=== PATIENT | female | born 1955 | race Asian ===

== ENCOUNTER 2018-01-05 21:07 | Emergency (ER) | payer MEDICARE, OTHER ==
--- NOTE | 2018-01-05 22:40 | ED Physician Chart ---
ED Chief Complaint/HPI - Patient Information Date Seen:: 01/05/18 Time Seen:: 22:00 Chief Complaint:: MALAISE History of Present Illness:: 62 YR OLD FEMALE ON SEDATIVES WITH WEAKNESS NO FEVER COUGH NO NVD PT DENIES CHEST OR ABD PAIN PT STATES SHE THINKS HER POTASSIUM IS LOW AND THAT IS WHY SHE IS WEAK SHE HAS A HX OF THAT. Allergies:: Allergies Allergy/AdvReac Type Severity Reaction Status Date / Time No Known Allergies Allergy Verified 01/05/18 21:40 Vitals:: Vital Signs - 8 hr 01/05/18 21:25 Temp 98.4 F HR 107 RR 18 BP 161/104 O2 Sat % 97 Historian:: Patient ED Review of Systems - Review of Systems General/Constitutional: No fever, No chills, No weight loss, No weakness, No diaphoresis, No edema, No loss of appetite Skin: No skin lesions, No rash, No bruising Head: No headache, No light-headedness Eyes: No loss of vision, No pain, No diplopia ENT: No earache, No nasal drainage, No sore throat, No tinnitus Neck: No neck pain, No swelling, No thyromegaly, No stiffness, No mass noted Cardio Vascular: No chest pain, No palpitations, No PND, No orthopnea, No edema Pulmonary: No SOB, No cough, No sputum, No wheezing GI: No nausea, No vomiting, No diarrhea, No pain, No melena, No hematochezia, No constipation, No hematemesis G/U: No dysuria, No frequency, No hematuria Musculoskeletal: No bone or joint pain, No back pain, No muscle pain Endocrine: No polyuria, No polydipsia Psychiatric: No prior psych history, No depression, No anxiety, No suicidal ideation Hematopoietic: No bruising, No lymphadenopathy Allergic/Immuno: No urticaria, No angioedema Neurological: No syncope, No focal symptoms, No weakness, No paresthesia, No headache, No seizure, No dizziness, No confusion, No vertigo Other: NIGEL ED Past Medical History - Past Medical History Past Medical History: Other (HASHIMOTOS THYROIDITIS PTSD) Family Medical History - Family Member Mother History Unknown: Yes ED Physical Exam - Physical Examination General/Constitutional: Awake, Well-developed, well-nourished, Alert, No distress, GCS 15, Non-toxic appearing, Ambulatory Head: Atraumatic Eyes: Lids, conjuctiva normal, PERRL, EOMI Skin: Nl inspection, No rash, No skin lesions, No ecchymosis, Well hydrated, No lymphadenopathy ENMT: External ears, nose nl, Nasal exam nl, Lips, teeth, gums nl Neck: Nontender, Full ROM w/o pain, No JVD, No nuchal rigidity, No bruit, No mass, No stridor Respiratory: Nl effort/Exclusion, Clear to Auscultation, No Wheeze/Rhonchi/Rales Cardio Vascular: RRR, No murmur, gallop, rubs, NL S1 S2 GI: No tenderness/rebounding/guarding, No organomegaly, No hernia, Normal BS's, Nondistended, No mass/bruits, No McBurney tenderness : No CVA tenderness Extremities: No tenderness or effusion, Full ROM, normal strength in all extremities, No edema, Normal digits & nails Neuro/Psych: Alert/oriented, DTR's symmetric, Normal sensory exam, Normal motor strength, Judgement/insight normal, Mood normal, Normal gait, No focal deficits Misc: Normal back, No paraspinal tenderness ED Assessment - Assessment General Assessment: GENERALIZED FATIGUE NON FOCAL NEURO GOOD MOOD DOWN TAKES TOO MUCH SEDATIVES TRAZADONE XANAX SEROQUEL ED Septic Shock - . Is Septic Shock (SBP<90, OR Lactate>4 mmol\L) present?: No - <6hrs of presentation: Vital Signs: Vital Signs - 8 hr 01/05/18 21:25 Temp 98.4 F HR 107 RR 18 BP 161/104 O2 Sat % 97 ED Reassessment (Disposition) - Reassessment Reassessment Condition:: Unchanged - Diagnosis Diagnosis:: MALAISE OVER MEDICATED ANXIETY - Patient Disposition Discharge/Transfer:: Home Condition at Disposition:: Stable
[2018-01-05 22:48] LABS: % BASOPHILS 0.1 % (0.0-2.0); % EOSINOPHILS 0.5 % (0.0-5.0); % LYMPHOCYTES 21.5 % (20.0-50.0); % MONOCYTES 4.6 % (2.0-10.0); % NEUTROPHILS 73.3 % (40.0-80.0); HEMATOCRIT 42.7 % (41.0-60); HEMOGLOBIN 14.4 gm/dL (12-16); LYMPHOCYTE ABSOLUTE 1.8 Th/cmm (1.5-3.0); MEAN CELL VOLUME 89.7 fl (81-100); MEAN CORPUSCULAR HEMOGLOBIN 30.3 pg (27.0-31.0); MEAN CORPUSCULAR HGB CONC 33.7 pg (28.0-36.0); MONOCYTE ABSOLUTE 0.4 Th/cmm (0.3-1.0); NEUTROPHILE ABSOLUTE 6.4 Th/cmm (1.8-8.0); PLATELET COUNT 207 Th/cmm (150-400); RED BLOOD COUNT 4.76 Mil/cmm (3.80-5.10); WHITE BLOOD COUNT 8.6 Th/cmm (4.8-10.8)
[2018-01-05 23:06] LABS: ALB/GLOB RATIO 1.7 (1.0-1.8); ALBUMIN 4.6 gm/dL (3.7-5.3); ALKALINE PHOSPHATASE 81 U/L (34-104); BILIRUBIN,TOTAL 0.2 mg/dL (0.3-1.0); BUN - UREA NITROGEN 12 mg/dL (7-25); CALCIUM SERUM 9.5 mg/dL (8.6-10.3); CARBON DIOXIDE 26.6 mEq/L (21.0-31.0); CHLORIDE 98 mEq/L (98-107); CREATININE - SERUM 0.7 mg/dL (0.6-1.2); GFR AFRICAN-AMERICAN > 60.0 ml/min (>90); GFR NON AFRICAN-AMERICAN > 60.0 ml/min; GLUCOSE 139 mg/dL (70-105); POTASSIUM SERUM 3.6 mEq/L (3.5-5.1); SGOT 14 U/L (13-39); SGPT/ALT 18 U/L (7-52); SODIUM SERUM 132 mEq/L (136-145); TOTAL PROTEIN,SERUM 7.3 gm/dL (6.0-8.3)
[2018-01-05] MEDS ORDERED: Potassium Chloride 20 mEq ER Tab PO ONE ×2 (23:35→23:45)
[2018-01-06 00:45] LABS: URINE MICROSCOPIC INDICATED? YES; URINE SOURCE CLEAN C
[2018-01-06 00:47] LABS: URINE BILIRUBIN NEGATIVE (NEGATIVE); URINE BLOOD NEGATIVE (NEGATIVE); URINE GLUCOSE (UA) NEGATIVE (NEGATIVE); URINE KETONE NEGATIVE (NEGATIVE); URINE LEUKOCYTE ESTERASE TRACE (NEGATIVE); URINE NITRATE NEGATIVE (NEGATIVE); URINE PH 7.5 (4.6 - 8.0); URINE PROTEIN NEGATIVE (NEGATIVE); URINE UROBILINOGEN 0.2 E.U./dL (0.2 - 1.0)
[2018-01-06 01:32] LABS: URINE CLARITY CLEAR (CLEAR); URINE COLOR YELLOW
[2018-01-06 01:33] LABS: URINE BACTERIA FEW /hpf (NONE SEEN); URINE EPITHELIAL CELLS FEW /lpf (FEW); URINE RBC 0-2 /hpf (0-5); URINE WBC 0-2 /hpf (0-5)
== END 2018-01-06 01:30 | disposition home or self-care (01) ==
LOC: ER 21:07
DX: R53.83 Other fatigue (principal); F41.9 Anxiety disorder, unspecified; Z88.8 Allergy status to other drugs, medicaments and biological substances
CPT/HCPCS: 36415-UA; 80053-TC; 81001-TC; 84443-TC; 85025-TC; 93005

== ENCOUNTER 2018-01-16 14:24 | Inpatient (IN) | payer MEDICARE ==
[2018-01-16 15:15] LABS: % BASOPHILS 0.4 % (0.0-2.0); % EOSINOPHILS 0.8 % (0.0-5.0); % LYMPHOCYTES 35.2 % (20.0-50.0); % MONOCYTES 5.6 % (2.0-10.0); EOSINOPHILE ABSOLUTE 0.1 Th/cmm (0.1-0.4); HEMATOCRIT 43.6 % (41.0-60); HEMOGLOBIN 14.4 gm/dL (12-16); LYMPHOCYTE ABSOLUTE 2.7 Th/cmm (1.5-3.0); MEAN CELL VOLUME 89.6 fl (81-100); MEAN CORPUSCULAR HEMOGLOBIN 29.7 pg (27.0-31.0); MEAN CORPUSCULAR HGB CONC 33.1 pg (28.0-36.0); MEAN PLATELET VOLUME 6.5 fl; MONOCYTE ABSOLUTE 0.4 Th/cmm (0.3-1.0); NEUTROPHILE ABSOLUTE 4.4 Th/cmm (1.8-8.0); PLATELET COUNT 247 Th/cmm (150-400); RED BLOOD COUNT 4.87 Mil/cmm (3.80-5.10); RED CELL DISTRIBUTION WIDTH 12.1 % (11.5-20.0); WHITE BLOOD COUNT 7.6 Th/cmm (4.8-10.8)
[2018-01-16 15:31] LABS: ALB/GLOB RATIO 1.9 (1.0-1.8); ALKALINE PHOSPHATASE 81 U/L (34-104); ANION GAP 10.5 (7.0-16.0); BILIRUBIN,TOTAL 0.4 mg/dL (0.3-1.0); BUN - UREA NITROGEN 10 mg/dL (7-25); CALCIUM SERUM 9.5 mg/dL (8.6-10.3); CARBON DIOXIDE 27.2 mEq/L (21.0-31.0); CHLORIDE 96 mEq/L (98-107); CHOLESTEROL 326 mg/dL (<200); CREATININE - SERUM 0.8 mg/dL (0.6-1.2); CREATININE KINASE 69 U/L (30-223); GFR AFRICAN-AMERICAN > 60.0 ml/min (>90); GFR NON AFRICAN-AMERICAN > 60.0 ml/min; GLUCOSE 130 mg/dL (70-105); HDL -HIGH DENSITY LIPOPROTEIN 59 mg/dL (23-92); POTASSIUM SERUM 3.7 mEq/L (3.5-5.1); SGOT 15 U/L (13-39); SGPT/ALT 27 U/L (7-52); SODIUM SERUM 130 mEq/L (136-145); TOTAL PROTEIN,SERUM 7.7 gm/dL (6.0-8.3); TRIGLYCERIDES 193 mg/dL (<150)
[2018-01-16 15:49] LABS: INR 0.88 (0.5-1.4)
[2018-01-16 15:59] LABS: DDIMER QUANT < 100 ng/mL (100-400)
--- NOTE | 2018-01-16 16:43 | ED Physician Chart ---
ED Chief Complaint/HPI - Patient Information Date Seen:: 01/16/18 Time Seen:: 14:45 Chief Complaint:: Leg Pain History of Present Illness:: onset x 3 days of intermittent MS type, dull leg pain, and mottling of LEs; pt denies trauma, H/As, LOC, S/T, neck pain, cough, C/P, SOB, Abd. Pain, A/N/V/D/C , fever, chills, or urinary s/s Allergies:: Allergies Allergy/AdvReac Type Severity Reaction Status Date / Time cephalexin Allergy Verified 01/05/18 23:53 levofloxacin [From Levaquin] Allergy Verified 01/05/18 23:53 Vitals:: Vital Signs - 8 hr 01/16/18 14:49 Temp 99.7 F HR 111 RR 16 BP 152/108 O2 Sat % 99 Historian:: Patient Review:: Nurse's Note Reviewed ED Review of Systems - Review of Systems General/Constitutional: No fever, No chills, No weight loss, No weakness, No diaphoresis, No edema, No loss of appetite Skin: No skin lesions, No rash, No bruising Head: No headache, No light-headedness Eyes: No loss of vision, No pain, No diplopia ENT: No earache, No nasal drainage, No sore throat, No tinnitus Neck: No neck pain, No swelling, No thyromegaly, No stiffness, No mass noted Cardio Vascular: No chest pain, No palpitations, No PND, No orthopnea, No edema Pulmonary: No SOB, No cough, No sputum, No wheezing GI: No nausea, No vomiting, No diarrhea, No pain, No melena, No hematochezia, No constipation, No hematemesis G/U: No dysuria, No frequency, No hematuria, No nacturia Supervisor Computer Operations: No vaginal discharge, No abnormal vaginal bleed, No contraction Musculoskeletal: No bone or joint pain, No back pain, No muscle pain Endocrine: No polyuria, No polydipsia Psychiatric: No prior psych history, No depression, Anxiety, No suicidal ideation, No homicidal ideation, No auditory hallucination, No visual hallucination Hematopoietic: No bruising, No lymphadenopathy Allergic/Immuno: No urticaria, No angioedema Neurological: No syncope, No focal symptoms, No weakness, No paresthesia, No headache, No seizure, No dizziness, No confusion, No vertigo ED Past Medical History - Past Medical History Obtainable: Yes Past Medical History: HTN, Thyroid disorder Family History: HTN Social History: Non Smoker, No Alcohol, No Drug Use, Single, Other Surgical History: other (Thyroidectomy) Psychiatricy History: None Medication: Reviewed Family Medical History - Family Member Mother History Unknown: Yes ED Physical Exam - Physical Examination General/Constitutional: Awake, Well-developed, well-nourished, Alert, No distress, GCS 15, Non-toxic appearing, Ambulatory Head: Atraumatic Eyes: Lids, conjuctiva normal, PERRL, EOMI Skin: Nl inspection, No rash, No skin lesions, No ecchymosis, Well hydrated, No lymphadenopathy ENMT: External ears, nose nl, TM canals nl, Nasal exam nl, Lips, teeth, gums nl , Oropharynx nl, Tonsils nl Neck: Nontender, Full ROM w/o pain, No JVD, No nuchal rigidity, No bruit, No mass, No stridor Respiratory: Nl effort/Exclusion, Clear to Auscultation, No Wheeze/Rhonchi/Rales Cardio Vascular: RRR, No murmur, gallop, rubs, NL S1 S2, Carotid/Femoral/Distal pulses equal bilaterally GI: No tenderness/rebounding/guarding, No organomegaly, No hernia, Normal BS's, Nondistended, No mass/bruits, No McBurney tenderness : No CVA tenderness Extremities: No tenderness or effusion, Full ROM, normal strength in all extremities, No edema, Normal digits & nails Neuro/Psych: Alert/oriented, DTR's symmetric, Normal sensory exam, Normal motor strength, Judgement/insight normal, Mood normal, Normal gait, No focal deficits Misc: Normal back, No paraspinal tenderness ED Labs/Radiology/EKG Results - Lab Results Results: Laboratory Tests 01/16/18 01/16/18 01/16/18 15:01 15:01 15:01 WBC 7.6 RBC 4.87 Hgb 14.4 Hct 43.6 MCV 89.6 MCH 29.7 MCHC Differential 33.1 RDW 12.1 Plt Count 247 MPV 6.5 Neutrophils % 58.0 Lymphocytes % 35.2 Monocytes % 5.6 Eosinophils % 0.8 Basophils % 0.4 PT 9.0 L INR 0.88 D-Dimer < 100 L Sodium 130 L Potassium 3.7 Chloride 96 L Carbon Dioxide 27.2 Anion Gap 10.5 BUN 10 Creatinine 0.8 Est GFR ( Amer) > 60.0 Est GFR (Non-Af Amer) > 60.0 BUN/Creatinine Ratio 12.5 Glucose 130 H Calcium 9.5 Total Bilirubin 0.4 AST 15 ALT 27 Alkaline Phosphatase 81 Creatine Kinase 69 Troponin I B-Natriuretic Peptide Total Protein 7.7 Albumin 5.0 Globulin 2.7 Albumin/Globulin Ratio 1.9 H Triglycerides 193 H Cholesterol 326 H LDL Cholesterol Direct 219 H HDL Cholesterol 59 Serum , Qual 01/16/18 01/16/18 01/16/18 15:01 15:01 15:01 WBC RBC Hgb Hct MCV MCH MCHC Differential RDW Plt Count MPV Neutrophils % Lymphocytes % Monocytes % Eosinophils % Basophils % PT INR D-Dimer Sodium Potassium Chloride Carbon Dioxide Anion Gap BUN Creatinine Est GFR ( Amer) Est GFR (Non-Af Amer) BUN/Creatinine Ratio Glucose Calcium Total Bilirubin AST ALT Alkaline Phosphatase Creatine Kinase Troponin I < 0.01 L B-Natriuretic Peptide 7.0 Total Protein Albumin Globulin Albumin/Globulin Ratio Triglycerides Cholesterol LDL Cholesterol Direct HDL Cholesterol Serum , Qual NEGATIVE Comments:: Na+: 130 - Radiology Results Comments:: NAD - EKG Interpretations EKG Time:: 17:28 Rate & Rhythm: 72; NSR Comments:: T-Wave Inversion in V1 and V2; non-specific st-t changes ED Septic Shock - . Is Septic Shock (SBP<90, OR Lactate>4 mmol\L) present?: No - <6hrs of presentation: Vital Signs: Vital Signs - 8 hr 01/16/18 14:49 Temp 99.7 F HR 111 RR 16 BP 152/108 O2 Sat % 99 ED Reassessment (Disposition) - Reassessment Reassessment Condition:: Improved - Diagnosis Diagnosis:: Leg Pain; Uncontrolled Hypertension; Hyponatremia; Myocardial Ischemia; Malaise ; Dehydration - Aftercare/Follow up Instructions Aftercare/Follow-Up Instructions:: Counseled pt regarding lab results/diagnosis & need follow up, Counseled pt & family regarding lab results/diagnosis & need follow up - Patient Disposition Discharge/Transfer:: Acute Care w/in this hosp Accepting Physician:: Dr. Duron Time Called:: 1615 Time Responded:: 16:15 Admitted to:: Telemetry Spoke to:: Dr. Duron Admitting Medical Physician:: Dr. Duron Condition at Disposition:: Stable, Improved
[2018-01-16] MEDS ORDERED: NITROGLYCERIN OINT 2% 1 INCH PACKET TP STA (17:30)
[2018-01-16] MEDS ORDERED: NITROGLYCERIN OINT 2% 1 INCH PACKET TP ONE (18:08)
[2018-01-16] MEDS ORDERED: D5-0.9%NS 1,000 ML IV SCH (19:15)
[2018-01-17] MEDS ORDERED: Levothyroxine 0.075 Mg Tab PO SCH (07:30)
--- NOTE | 2018-01-17 08:31 | Diagnostic Imaging Report ---
Bilateral lower extremity DVT study HISTORY: Pain COMPARISON: None Technique: Longitudinal and transverse sonographic images of the bilateral lower extremity veins were obtained with doppler analysis. FINDINGS: There is normal compressibility, augmentation and phasicity of the bilateral common femoral, superficial femoral, popliteal, and posterior tibial veins. No thrombus is visualized. IMPRESSION: No evidence of thrombus within the bilateral lower extremity veins.
--- NOTE | 2018-01-17 08:41 | Diagnostic Imaging Report ---
Bilateral lower extremity arterial Doppler study HISTORY: Pain COMPARISON: None Technique: Longitudinal and transverse sonographic images of the bilateral lower extremity arteries were obtained with doppler analysis. FINDINGS: Exam of the right side demonstrates mild atherosclerotic vascular disease greatest distally with biphasic flow is seen distally. Right EVGENY is 1.2 Exam of the left side demonstrates mild atherosclerotic vascular disease greatest distally. Biphasic wave forms seen distally. Left EVGENY is 1.2 No sonographic evidence of occlusion. IMPRESSION: Mild generalized atherosclerotic vascular disease, greatest distally. No evidence of occlusion.
--- NOTE | 2018-01-17 14:04 | History & Physical ---
ADMIT DATE: 01/16/2018 CHIEF COMPLAINT: Leg pain, generalized weakness. HISTORY OF PRESENT ILLNESS: This is a 62-year-old [place]kin[place] female with a history of hypothyroidism, previous Graves' disease. She was seen at [facility] ER on last Monday, which is 4 days ago, complaining of generalized weakness, the patient was noted to be hypokalemic and the thought was for hyperthyroid-induced paralysis, the patient was discharged. She now comes in with generalized weakness and bilateral leg pain, and stated that there is thick mottling of the lower extremity. The patient is a nurse. The patient was seen in the Emergency Room and admitted for further observation. PAST MEDICAL HISTORY: As mentioned in the history of present illness. PAST SURGICAL HISTORY: Status post thyroid surgery. ALLERGIES: KEFLEX AND LEVAQUIN. MEDICATIONS: The patient's Synthroid decreased to 175, lisinopril 5, Seroquel, and trazodone. FAMILY HISTORY: Noncontributory. SOCIAL HISTORY: Nonsmoker, nondrinker, no intravenous drug use. 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 REVIEW OF SYSTEMS: GENERAL: Complains of not feeling well, ongoing for the last 1 month. HEENT: The patient with some blurred vision and pressure on the eye at times. LUNGS: No diagnosis of COPD and asthma. HEART: The patient with hypertension. Denies coronary artery disease. ABDOMEN: No nausea, vomiting, or pain. GENITOURINARY: The patient denies any increased frequency or dysuria. NEUROLOGIC: As mentioned above. PHYSICAL EXAMINATION: VITAL SIGNS: Blood pressure 103/57, respirations 18, pulse 66, temperature 98.6. GENERAL: Elderly female, in no acute distress. Family at bedside including her daughter. NECK: Supple. No mass. LUNGS: Equal breath sounds, a few rhonchi. HEART: Regular rate and rhythm without appreciable murmur. ABDOMEN: Soft, globular. EXTREMITIES: Positive excoriation. NEUROLOGIC: Limited. LABORATORY DATA: WBC 7, hemoglobin 14, platelets of 47. D-dimer less than 100. Sodium 130, potassium 3.7, glucose 130. Troponin negative. Cholesterol 326. ASSESSMENT: 1. Generalized weakness of unclear etiology. 2. Acute hyponatremia. 3. ____. 4. Hypercholesterolemia. 5. Hypertension. 6. Hypothyroidism. PLAN: The patient also comes in with some cardiac pressure. Troponin has been negative. Cardiology has been consulted as well as Psychiatry. We may consider a Neurology referral. We will decrease the patient's Synthroid and will continue the patient on observation. JOB# [id number]
[2018-01-18] MEDS ORDERED: Levothyroxine 0.075 Mg Tab PO SCH (07:30)
--- NOTE | 2018-01-18 12:25 | Cardiology ---
01/16/[address] Duron. M-MODE ECHOCARDIOGRAM: Mitral valve, anterior leaflet of mitral valve shows normal excursion, EF velocity. Posterior leaflet of the mitral valve shows normal excursion. Left ventricular posterior wall shows increased thickness, normal excursion. Interventricular septum shows increased thickness, normal excursion, hypertrophy of the left ventricle, ejection fraction 60%. Left atrium normal. Aortic root shows normal dimension, normal excursion of aortic leaflets. CONCLUSION: Hypertrophy of the left ventricle, ejection fraction 60%. 2D ECHO ON THE SAME PATIENT: Long axis view showed normal-sized left ventricle with hypertrophy of the left ventricle. Left atrium normal. Aortic root shows normal dimension, normal excursion of aortic leaflets. Short axis view of mitral valve normal. Short axis view of aortic valve normal. Apical four chamber view showed normal-sized left ventricle with hypertrophy of the left ventricle. Left atrium normal. Right ventricular cavity and right atrium normal. No pericardial effusion. CONCLUSION: Hypertrophy of the left ventricle, ejection fraction 60%. Doppler study shows mild aortic regurgitation. [facility]# [id number]
--- NOTE | 2018-01-18 16:07 | Consultation ---
DATE OF CONSULTATION: 01/17/[address] Duron. HISTORY OF PRESENT ILLNESS: This 62-year-old Micron[place] female patient who came to the Emergency Room complaining of weakness and tiredness. According to the patient, she had been to [facility] for the same reason four days prior to this admission. The patient was found to have hypokalemia. The patient had been given potassium supplement. Following this, the patient is admitted to [facility]. PAST MEDICAL HISTORY: The patient has a history of Graves' disease. Following this, the patient had thyroid surgery. At the present time, the patient is hypothyroid, history of osteoporosis, hypertension, and major depression. FAMILY HISTORY: Unremarkable. SOCIAL HISTORY: No history of smoking, alcohol abuse. ALLERGIES: No known allergies. PHYSICAL EXAMINATION: VITAL SIGNS: Blood pressure 130/80, pulse 70, and respirations 20. HEAD: Normocephalic. No lumps or bumps. EYES: Pupils equal, reactive to light. Fundi show AV nicking, sclerae white, conjunctivae pink. NECK: Carotid 2+. Normal upstroke. JVD flat. Thyroid not palpable. Lymph nodes not palpable. CHEST: Shows increased AP diameter. No kyphosis, scoliosis. LUNGS: Bilateral bronchovesicular breath sounds. HEART: PMI fifth intercostal space with lateral to midclavicular line. S1, S2. No S3, S4, soft systolic murmur. ABDOMEN: Soft. Liver and spleen not palpable. No organomegaly. Bowel sounds active. NEUROLOGIC: The patient has generalized weakness. EXTREMITIES: Peripheral pulses 2+. No pedal edema. CLINICAL IMPRESSION: Generalized weakness, probably secondary to hypothyroidism, history of Graves' disease followed by surgery, hypertension, diabetes mellitus type 2, hyperlipidemia, and hyponatremia. PLAN: At the present time, we will monitor the patient closely, get troponin level, EKG, echocardiogram, and monitor the patient on telemetry bed. JOB# [id number]
== END 2018-01-17 13:55 | disposition home or self-care (01) | DRG 644 ==
LOC: ER 14:24 → TELE 18:45
PROVIDERS: ADMIT Internal Medicine; ATTEND Internal Medicine
DX: E03.9 Hypothyroidism, unspecified (principal); E87.1 Hypo-osmolality and hyponatremia; I10 Essential (primary) hypertension; I25.9 Chronic ischemic heart disease, unspecified; E86.0 Dehydration; R53.1 Weakness; E78.00 Pure hypercholesterolemia, unspecified; E87.6 Hypokalemia; E05.00 Thyrotoxicosis with diffuse goiter without thyrotoxic crisis or storm; M81.0 Age-related osteoporosis without current pathological fracture; F32.9 Major depressive disorder, single episode, unspecified; E11.9 Type 2 diabetes mellitus without complications; E78.5 Hyperlipidemia, unspecified; Z88.1 Allergy status to other antibiotic agents; Z82.49 Family history of ischemic heart disease and other diseases of the circulatory system
CPT/HCPCS: 36415-UA; 80053-TC; 80061-TC; 82550-TC; 83880-TC; 84484-TC; 84703-TC; 85025-TC; 85379-TC; 85610-TC; 93005; 93925-TC; 93970-TC-50; 94760; J7042; Z7610

== ENCOUNTER 2018-12-02 20:20 | Inpatient (IN) | payer MEDICARE ==
[2018-12-02] MEDS ORDERED: Magnesium Hydroxide (MOM) 30 mL UDC PO PRN (23:06)
[2018-12-03 00:52] VITALS: BP 125/78
[2018-12-03 07:32] LABS: CHOLESTEROL 203 mg/dL (<200); HDL -HIGH DENSITY LIPOPROTEIN 54 mg/dL (23-92); TRIGLYCERIDES 129 mg/dL (<150)
--- NOTE | 2018-12-03 15:05 | History & Physical ---
ADMIT DATE: 12/02/2018 CHIEF COMPLAINT: Admitted 5150. 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 The patient was transferred for further care and treatment. PAST MEDICAL HISTORY: As mentioned in history of present illness. PAST SURGICAL HISTORY: Status post thyroid surgery, T and A, and right thyroid lobectomy. ALLERGIES: KEFLEX AND LEVAQUIN. MEDICATIONS: The patient apparently not on Synthroid anymore. The patient is on lisinopril, Seroquel, and trazodone. FAMILY HISTORY: Noncontributory. SOCIAL HISTORY: Nonsmoker, nondrinker. 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 REVIEW OF SYSTEMS: GENERAL: The patient complains of not feeling well. HEENT: No blurred vision or pain. LUNGS: No diagnosis of COPD or asthma. HEART: The patient with denies hypertension, coronary artery disease. The patient follows with for Cardiology. The patient seen by Cardiology at times, as far as patient's concerns she has coronary artery disease. ABDOMEN: No nausea, vomiting, pain. GENITOURINARY: The patient denies increased frequency or dysuria. NEUROLOGIC: No headache, seizure, or syncope. PSYCHIATRIC: As above. PHYSICAL EXAMINATION: VITAL SIGNS: Blood pressure 130/79, respirations 18, pulse 94, temperature 98.8. GENERAL: Middle-age elderly female, appears younger. NECK: Supple. No mass. LUNGS: Equal breath sounds, otherwise clear to auscultation. HEART: Regular rate and rhythm without appreciable murmur. ABDOMEN: Soft, nontender with bowel sounds present. EXTREMITIES: Positive excoriation. NEUROLOGIC: Limited in all 4 extremities. LABORATORY DATA: Noted from ____ hospital. Sodium 134, the rest are within normal range including CBC. ASSESSMENT AND PLAN: Hyponatremia, hypertension, history of hyperthyroidism/Graves' disease, and tachycardia, we will monitor the patient closely. The patient was started on intravenous fluid. Her plant controls specialist told her not to continue on Synthroid for now and just monitor and continue on ____. We will correct electrolytes. Continue with current care with followup consult and recommendations. JOB# [id number]
[2018-12-03] MEDS ORDERED: Benztropine 1 mg/mL 2 mL Vial IM ONE (23:09)
--- NOTE | 2018-12-04 03:42 | Psychiatric Evaluation ---
DATE OF SERVICE: 12/02/2018 IDENTIFYING DATA: The patient is a 63-year-old woman, living with her son. Information obtained by directly interviewing the patient as well as reviewing the admission papers. JUSTIFICATION FOR HOSPITALIZATION: The patient is admitted on 5150 as a danger to self. CHIEF COMPLAINT: "I don't know what happened to me, I was scared and I was running naked." HISTORY OF PRESENT ILLNESS: This is the second psychiatric hospitalization to this patient who is reported to have been followed up by me on an outpatient basis. The patient has been diagnosed to have psychosis NOS and major depressive disorder with psychotic symptoms and PTSD and is medicated with Seroquel, trazodone and Xanax on a p.r.n. basis; however, the patient has been doing fairly well since the last episode like this one 2 years ago and decided that she wanted to come off of the Seroquel. The patient on the day of the hospitalization has been stating that she opened her patio door and felt something funny odor and the patient also states that the neighbors next to her have been trying to create more problems. The patient is going on in detail about how things have been thrown at her face and doorstep and the patient is stating that she is scared about the neighbors and could not figure it out and she is stating that she has been isolating and then locking herself up in the house most of the time. Sleep is noted to be poor. The patient is having a lot of nightmares. The patient's appetite is noted to be fair at this time. The patient has been only on trazodone and Xanax, that too very minimal doses. The patient is reported to have been claiming that she is devil and she was running naked and hence the patient has been placed on 5150 and taken to the [facility] from where she has been transferred over here for stabilization. PAST PSYCHIATRIC HISTORY: Please refer the above and an episode like this and it is being followed up by me on an outpatient basis. SUBSTANCE ABUSE HISTORY: None. PHYSICAL OR SEXUAL ABUSE HISTORY: None. LEGAL PROBLEMS: None at this time. MENTAL STATUS EXAMINATION: The patient is a 63-year-old, looking her stated age, cooperative. Eye contact is fair. Mood is very depressed and anxious. Affect is constricted. The patient feels ashamed of what happened to her. The patient continues to be very paranoid. The patient is endorsing olfactory hallucinations. The patient is stating that she has been having the weird odor; she has called the [employer] to come and investigate it. The patient is worried about her and her son's life are in danger with the neighbors. The patient is currently denying any command hallucinations. The patient is alert and oriented x 3. Attention span and concentration are noted to be fair. The patient is of average intelligence. The patient is alert and oriented to time, place, person and situation. Short and longwall machine operator helper are noted to be intact. DIAGNOSTIC IMPRESSION: AXIS IA: Psychotic disorder, not otherwise specified. IB: Major depressive disorder, recurrent, with psychotic symptoms. IC: Posttraumatic stress disorder. AXIS II: None. AXIS III: As per Dr. Duron. IMMEDIATE TREATMENT PLAN: The patient is going to be observed on inpatient unit, provided with supportive psychotherapy. The patient is going to be encouraged to participate in the groups and verbalize the concerns. Once stabilized, the patient is going to be discharged for followup on an outpatient basis. [facility]# [id number]
--- NOTE | 2018-12-04 11:56 | Internal Medicine Prog Note ---
Internal Medicine Subjective - Subjective Patient seen and examined:: with staff, chart reviewed Patient is:: awake, verbal, interactive, ambulating, denies any new complaints Per staff patient has:: no adverse event, poor appetite, tolerating meds Internal Medicine Objective - Results Recent Labs: Laboratory Last Values Triglycerides 129 mg/dL (<150) 12/03/18 06:50 Cholesterol 203 mg/dL (<200) H 12/03/18 06:50 LDL Cholesterol Direct 139 mg/dL (75-193) 12/03/18 06:50 HDL Cholesterol 54 mg/dL (23-92) 12/03/18 06:50 - Physical Exam Vitals and I&O: Vital Signs Temp 97.7 F 12/04/18 06:11 Pulse 97 12/04/18 06:11 Resp 19 12/04/18 06:11 BP 129/67 12/04/18 06:11 Pulse Ox 95 12/04/18 06:11 Intake & Output 12/03/18 12/04/18 12/04/18 18:59 06:59 18:59 Intake Total 950 240 Balance 950 240 Intake: Oral 950 240 Other: # Voids 4 3 # Bowel Movements 1 0 Active Medications: Current Medications Acetaminophen (Tylenol) 650 mg PO Q4HR PRN PRN Reason: Mild Pain / Temp above 100 Stop: 01/31/19 23:05 Alprazolam (Xanax) 0.5 mg PO BID AARON; Protocol Stop: 02/01/19 08:59 Last Admin: 12/04/18 09:27 Dose: Not Given Lisinopril (Zestril) 10 mg PO DAILY AARON Stop: 02/01/19 08:59 Last Admin: 12/04/18 09:27 Dose: Not Given Lorazepam (Ativan) 0.5 mg PO Q4HR PRN; Protocol PRN Reason: Anxiety Stop: 01/01/19 20:29 Last Admin: 12/02/18 23:40 Dose: 0.5 mg Magnesium Hydroxide (Milk Of Magnesia) 30 ml PO HS PRN PRN Reason: Constipation Olanzapine (Zyprexa) 5 mg PO HS AARON; Protocol Stop: 02/02/19 20:59 Trazodone HCl (Desyrel) 50 mg PO HS AARON; Protocol Stop: 02/01/19 20:59 Last Admin: 12/03/18 20:48 Dose: 50 mg Zolpidem Tartrate (Ambien) 5 mg PO HS PRN PRN Reason: Insomnia Stop: 01/31/19 20:29 Last Admin: 12/02/18 23:40 Dose: 5 mg General: alert HEENT: NC/AT, PERRLA, EOMI, throat clear Neck: Supple, No JVD Lungs: CTAB Cardiovascular: RRR, Normal S1, Normal S2, without murmur Abdomen: soft, non-tender, thin, positive bowel sound Extremities: clear Neurological: no change Internal Medicine Assmt/Plan - Assessment Assessment: ASSESSMENT AND PLAN: Hyponatremia, hypertension, history of hyperthyroidism/Graves' disease, and tachycardia, - Plan Plan: PLAN: we will monitor the patient closely. Her contract administration specialist told her not to continue on Synthroid for now and just monitor and continue on _bp meds___. We will correct electrolytes. Continue with current care with followup consult and recommendations.
[2018-12-04 12:56] LABS: ALB/GLOB RATIO 1.9 (1.0-1.8); ALBUMIN 4.6 gm/dL (3.7-5.3); ALKALINE PHOSPHATASE 62 U/L (34-104); ANION GAP 12.1 (7.0-16.0); BILIRUBIN,TOTAL 0.3 mg/dL (0.3-1.0); BUN - UREA NITROGEN 14 mg/dL (7-25); CALCIUM SERUM 9.9 mg/dL (8.6-10.3); CARBON DIOXIDE 27.6 mEq/L (21.0-31.0); CHLORIDE 105 mEq/L (98-107); CREATININE - SERUM 0.8 mg/dL (0.6-1.2); CREATININE KINASE 55 U/L (30-223); GFR AFRICAN-AMERICAN > 60.0 ml/min (>90); GFR NON AFRICAN-AMERICAN > 60.0 ml/min; GLUCOSE 107 mg/dL (70-105); MAGNESIUM 2.4 mg/dL (1.9-2.7); POTASSIUM SERUM 3.7 mEq/L (3.5-5.1); SGOT 11 U/L (13-39); SGPT/ALT 14 U/L (7-52); SODIUM SERUM 141 mEq/L (136-145)
[2018-12-04 18:35] LABS: % BASOPHILS 0.8 % (0.0-2.0); % EOSINOPHILS 0.7 % (0.0-5.0); % LYMPHOCYTES 32.1 % (20.0-50.0); % MONOCYTES 6.5 % (2.0-10.0); % NEUTROPHILS 59.9 % (40.0-80.0); BASOPHILE ABSOLUTE 0.1 Th/cumm (0-0.2); HEMATOCRIT 41.7 % (41.0-60); HEMOGLOBIN 13.8 gm/dL (12-16); LYMPHOCYTE ABSOLUTE 2.1 Th/cmm (1.5-3.0); MEAN CELL VOLUME 89.7 fl (81-100); MEAN CORPUSCULAR HEMOGLOBIN 29.6 pg (27.0-31.0); MEAN PLATELET VOLUME 7.1 fl; MONOCYTE ABSOLUTE 0.4 Th/cmm (0.3-1.0); NEUTROPHILE ABSOLUTE 3.9 Th/cmm (1.8-8.0); PLATELET COUNT 228 Th/cmm (150-400); RED BLOOD COUNT 4.65 Mil/cmm (3.80-5.10); RED CELL DISTRIBUTION WIDTH 12.6 % (11.5-20.0); WHITE BLOOD COUNT 6.5 Th/cmm (4.8-10.8)
[2018-12-04 20:31] LABS: URINE SOURCE CLEAN C
[2018-12-04 20:37] LABS: URINE BILIRUBIN NEGATIVE (NEGATIVE); URINE BLOOD NEGATIVE (NEGATIVE); URINE GLUCOSE (UA) NEGATIVE (NEGATIVE); URINE KETONE NEGATIVE (NEGATIVE); URINE LEUKOCYTE ESTERASE MODERATE (NEGATIVE); URINE NITRATE NEGATIVE (NEGATIVE); URINE PH 5.5 (4.6 - 8.0); URINE PROTEIN NEGATIVE (NEGATIVE); URINE UROBILINOGEN 0.2 E.U./dL (0.2 - 1.0)
[2018-12-04 20:39] LABS: URINE CLARITY CLEAR (CLEAR); URINE COLOR YELLOW; URINE MICROSCOPIC INDICATED? YES
[2018-12-04 20:47] LABS: URINE BACTERIA 1+ /hpf (NONE SEEN); URINE EPITHELIAL CELLS FEW /lpf (FEW); URINE RBC 0-2 /hpf (0-5)
--- NOTE | 2018-12-05 01:21 | Progress Notes ---
DATE: 12/04/2018 PSYCHIATRIC PROGRESS NOTE SUBJECTIVE: Staff was spoken to. The patient is interviewed. Mood is noted to be anxious. The patient has ____ with the Zyprexa. The patient is reported to have been drooling. She developed some kind of rash since she was given ____. The patient is stating that she was almost paralyzed. The patient's blood pressure and pulse are noted to be within normal limits. The patient is not having any limitation to the movement, but the patient is resting on the bed and is feeling dizzy. The patient's daughter has been visiting the patient and both of them have spoken to in detail. The patient continues to be very paranoid. The patient did well on the Seroquel, but the patient stated that she had palpitations and she does not want it. The patient has ____ with the Zyprexa and hence low dose of the Abilify or Risperdal are considered. The patient has been provided information with this. PLAN: To continue the patient with the supportive therapy. I encouraged the patient to verbalize the concerns rather than to act out. JOB# [id number]
--- NOTE | 2018-12-05 11:48 | Internal Medicine Prog Note ---
Internal Medicine Subjective - Subjective Patient seen and examined:: with staff, chart reviewed Patient is:: awake, verbal, interactive, ambulating, denies any new complaints Per staff patient has:: no adverse event, poor appetite, tolerating meds Internal Medicine Objective - Results Result Diagrams: 12/04/18 12:15 12/04/18 12:15 Recent Labs: Laboratory Last Values WBC 6.5 Th/cmm (4.8-10.8) 12/04/18 12:15 RBC 4.65 Mil/cmm (3.80-5.10) 12/04/18 12:15 Hgb 13.8 gm/dL (12-16) 12/04/18 12:15 Hct 41.7 % (41.0-60) 12/04/18 12:15 MCV 89.7 fl (81-100) 12/04/18 12:15 MCH 29.6 pg (27.0-31.0) 12/04/18 12:15 MCHC Differential 33.0 pg (28.0-36.0) 12/04/18 12:15 RDW 12.6 % (11.5-20.0) 12/04/18 12:15 Plt Count 228 Th/cmm (150-400) 12/04/18 12:15 MPV 7.1 fl 12/04/18 12:15 Neutrophils % 59.9 % (40.0-80.0) 12/04/18 12:15 Lymphocytes % 32.1 % (20.0-50.0) 12/04/18 12:15 Monocytes % 6.5 % (2.0-10.0) 12/04/18 12:15 Eosinophils % 0.7 % (0.0-5.0) 12/04/18 12:15 Basophils % 0.8 % (0.0-2.0) 12/04/18 12:15 Sodium 141 mEq/L (136-145) 12/04/18 12:15 Potassium 3.7 mEq/L (3.5-5.1) 12/04/18 12:15 Chloride 105 mEq/L (98-107) 12/04/18 12:15 Carbon Dioxide 27.6 mEq/L (21.0-31.0) 12/04/18 12:15 Anion Gap 12.1 (7.0-16.0) 12/04/18 12:15 BUN 14 mg/dL (7-25) 12/04/18 12:15 Creatinine 0.8 mg/dL (0.6-1.2) 12/04/18 12:15 Est GFR ( Amer) > 60.0 ml/min (>90) 12/04/18 12:15 Est GFR (Non-Af Amer) > 60.0 ml/min 12/04/18 12:15 BUN/Creatinine Ratio 17.5 12/04/18 12:15 Glucose 107 mg/dL (70-105) H 12/04/18 12:15 Calcium 9.9 mg/dL (8.6-10.3) 12/04/18 12:15 Magnesium 2.4 mg/dL (1.9-2.7) 12/04/18 12:15 Total Bilirubin 0.3 mg/dL (0.3-1.0) 12/04/18 12:15 AST 11 U/L (13-39) L 12/04/18 12:15 ALT 14 U/L (7-52) 12/04/18 12:15 Alkaline Phosphatase 62 U/L (34-104) 12/04/18 12:15 Creatine Kinase 55 U/L (30-223) 12/04/18 12:15 Total Protein 7.0 gm/dL (6.0-8.3) 12/04/18 12:15 Albumin 4.6 gm/dL (3.7-5.3) 12/04/18 12:15 Globulin 2.4 gm/dL 12/04/18 12:15 Albumin/Globulin Ratio 1.9 (1.0-1.8) H 12/04/18 12:15 Triglycerides 129 mg/dL (<150) 12/03/18 06:50 Cholesterol 203 mg/dL (<200) H 12/03/18 06:50 LDL Cholesterol Direct 139 mg/dL (75-193) 12/03/18 06:50 HDL Cholesterol 54 mg/dL (23-92) 12/03/18 06:50 Urine Source CLEAN C 12/04/18 20:20 Urine Color YELLOW 12/04/18 20:20 Urine Clarity CLEAR (CLEAR) 12/04/18 20:20 Urine pH 5.5 (4.6 - 8.0) 12/04/18 20:20 Ur Specific [place] 1.010 (1.005-1.030) 12/04/18 20:20 Urine Protein NEGATIVE mg/dL (NEGATIVE) 12/04/18 20:20 Urine Glucose (UA) NEGATIVE mg/dL (NEGATIVE) 12/04/18 20:20 Urine Ketones NEGATIVE mg/dL (NEGATIVE) 12/04/18 20:20 Urine Blood NEGATIVE (NEGATIVE) 12/04/18 20:20 Urine Nitrate NEGATIVE (NEGATIVE) 12/04/18 20:20 Urine Bilirubin NEGATIVE (NEGATIVE) 12/04/18 20:20 Urine Urobilinogen 0.2 E.U./dL (0.2 - 1.0) 12/04/18 20:20 Ur Leukocyte Esterase MODERATE (NEGATIVE) H 12/04/18 20:20 Urine RBC 0-2 /hpf (0-5) 12/04/18 20:20 Urine WBC 2-5 /hpf (0-5) 12/04/18 20:20 Ur Epithelial Cells FEW /lpf (FEW) 12/04/18 20:20 Urine Bacteria 1+ /hpf (NONE SEEN) H 12/04/18 20:20 - Physical Exam Vitals and I&O: Vital Signs Temp 98.0 F 12/05/18 06:03 Pulse 64 12/05/18 06:03 Resp 20 12/05/18 06:03 BP 102/63 12/05/18 06:03 Pulse Ox 96 12/05/18 06:03 Intake & Output 12/04/18 12/05/18 12/05/18 18:59 06:59 18:59 Intake Total 640 Balance 640 Intake: Oral 640 Other: # Voids 2 # Bowel Movements 0 Active Medications: Current Medications Acetaminophen (Tylenol) 650 mg PO Q4HR PRN PRN Reason: Mild Pain / Temp above 100 Stop: 01/31/19 23:05 Alprazolam (Xanax) 0.5 mg PO BID AARON; Protocol Stop: 02/01/19 08:59 Last Admin: 12/05/18 10:39 Dose: Not Given Lisinopril (Zestril) 10 mg PO DAILY AARON Stop: 02/01/19 08:59 Last Admin: 12/05/18 09:43 Dose: Not Given Lorazepam (Ativan) 0.5 mg PO Q4HR PRN; Protocol PRN Reason: Anxiety Stop: 01/01/19 20:29 Last Admin: 12/02/18 23:40 Dose: 0.5 mg Magnesium Hydroxide (Milk Of Magnesia) 30 ml PO HS PRN PRN Reason: Constipation Olanzapine (Zyprexa) 5 mg PO HS AARON; Protocol Stop: 02/02/19 20:59 Last Admin: 12/04/18 21:00 Dose: Not Given Trazodone HCl (Desyrel) 50 mg PO HS AARON; Protocol Stop: 02/01/19 20:59 Last Admin: 12/04/18 21:00 Dose: Not Given Zolpidem Tartrate (Ambien) 5 mg PO HS PRN PRN Reason: Insomnia Stop: 01/31/19 20:29 Last Admin: 12/02/18 23:40 Dose: 5 mg General: alert HEENT: NC/AT, PERRLA, EOMI, throat clear Neck: Supple, No JVD Lungs: CTAB Cardiovascular: RRR, Normal S1, Normal S2, without murmur Abdomen: soft, non-tender, thin, positive bowel sound Extremities: clear Neurological: no change Internal Medicine Assmt/Plan - Assessment Assessment: ASSESSMENT AND PLAN: Hyponatremia, hypertension, history of hyperthyroidism/Graves' disease, and tachycardia, - Plan Plan: PLAN: we will monitor the patient closely. Her cloud physicist told her not to continue on Synthroid for now and just monitor and continue on _bp meds___. We will correct electrolytes. Continue with current care with followup consult and recommendations.
--- NOTE | 2018-12-05 22:58 | Progress Notes ---
DATE: 12/05/2018 SUBJECTIVE: Staff was spoken to. The patient is interviewed. Mood is noted to be depressed. Affect is constricted. The patient is isolative and withdrawn. The patient is stating that she is still feeling very tired and the Zyprexa that was given yesterday the patient is stating that she has been able to get up on the feet, but still feels depressed. The patient has paranoid delusions, but denies any command hallucinations. The patient is very much worried with the neighbors trying to do something to her and her son. The patient is not able to contract for safety. The patient's daughter has been spoken to in detail. ASSESSMENT: The patient is still psychotic. PLAN: To continue the patient with the supportive therapy and followup. [facility]# [id number]
--- NOTE | 2018-12-06 06:06 | Consultation ---
DATE OF CONSULTATION: 12/05/2018 DATE OF CONSULTATION: 12/05/2018 REFERRING PHYSICIAN: Hussein Solomon M.D. TYPE OF CONSULTATION: Psychology. HISTORY OF PRESENT ILLNESS: The patient is a 63-year-old female. The following is by record review and by the patient's self-report. Upon interview, the patient states that she was having a panic attack and felt scared and that she heard a voice that she thought was the devil. She stated that she needed to get "bare". The patient is being admitted on a 5150 as a danger to self. The patient's daughter, Bernice, is present during this clinical interview and providing collateral information. The patient is being seen by Dr. Solomon on an outpatient basis. The patient's previous diagnosis has been psychosis, not otherwise specified and major depressive disorder with psychotic symptoms as well as post-traumatic stress disorder. The patient is reporting that she discontinued her Seroquel because she felt she was having heart palpitations. The patient also states that she believes her neighbors have been creating problems and trying to get at her. The patient had multiple complaints about her neighbors as well as locking herself up in her home to protect herself. The patient states that she is experiencing nightmares and hearing voices. The patient believes that she is being influenced by the devil. The patient has been intermittently noncompliant with her medication according to herself and family. The patient denied any suicidal ideation, plan, or intention at the time of this clinical interview. PAST MEDICAL HISTORY: Please see history and physical by Dr. Duron. Dr. Duron is the patient's family physician. PAST PSYCHIATRIC HISTORY: The patient is under the care of Dr. Solomon on an outpatient basis. According to the record, the patient has had a similar episode in the past. No previous psychiatric hospitalization. SUBSTANCE ABUSE HISTORY: The patient denies any history of alcohol, tobacco, or illicit drug use. PSYCHOSOCIAL HISTORY: The patient reports that she is a devout [employer]. She stated that she is and lives with her son and has a daughter named Bernice who was present during the clinical interview. The patient states her sister, Anna, is also involved in her care. The patient lives with her son in [place], [place]. The patient did not answer questions about occupational or educational history. The patient denied any history of physical or sexual abuse or any current legal problems; however, the patient states she may have legal problems with her neighbor. Verification for this is unknown. MENTAL STATUS EXAMINATION: The patient appears to be younger than her stated age. The patient's attitude is cooperative. Eye contact is fair. Mood is anxious. Affect is mood congruent. Speech is spontaneous and relevant as well as coherent. Thought process shows to be confused at times. However, the patient is able to give answers about milestones as well as correct age and date of . The patient admits that she is experiencing auditory hallucinations. The patient states that these are not command type. However, she states she feels that they are persecutory and that it is the devil talking to her and that she responds by disrobing to cleanse herself. The patient also stated that she is worried about her son's life and also about her safety because of her neighbors. There is some paranoid ideation present. The patient denied any visual hallucinations; however, this needs further evaluation. The patient's behavior has been compliant with the care and treatment on the unit. Impulse control is poor. The patient's daughter states that she has been wandering out of her house and down the street, sometimes naked. Concentration is fair. The patient was able to sustain focus and attention. Sensorium is alert and oriented x 3. The patient was able to perform the memory assessment. Immediate, short-term, and long-term memory seemed to be intact. The patient was able to logically interpret 1/3 proverbs. The other 2 were unfamiliar to her. Insight is poor. Judgment is compromised. DIAGNOSTIC IMPRESSION: AXIS I: 1. Psychotic disorder, not otherwise specified. 2. History of major depressive disorder, recurrent with psychotic symptoms. 3. History of posttraumatic stress disorder. AXIS II: Deferred. AXIS III: Per Dr. Duron. TREATMENT PLAN: The patient has been seen by Dr. Solomon for psychiatric evaluation and for the management of the patient's psychotropic medications. We will provide supportive psychotherapy to include reality orientation, differentiation, and integration. The patient was unable to specify past trauma with respect to her diagnosis of PTSD. This needs further evaluation. We encouraged the patient to participate in the milieu therapy and to be compliant with her medications. The patient will be closely working with the attending psychiatrist with respect to stability with psychotropic medication management. We will provide coping strategies for phase of life issues. The patient had stated that she sometimes has panic episodes. We will provide an anxiety reduction skill to be learned in session as well as address the possible need for anxiolytic medication. This will be discussed with the attending psychiatrist. We will also provide cognitive behavioral therapy to reduce the patient's depression and anxiety. We will encourage the patient to verbally contract for safety. We will provide the limit setting with respect to the patient's inappropriate behavior, i.e., disrobing and wandering around her house and outdoors. We will continue to provide treatment throughout the patient's hospital course. We will follow up in 2 days to continue the present treatment. Thank you, Dr. Solomon for this consult and the opportunity to participate in this patient's care. JOB# [id number] [employer]TD[employer]
--- NOTE | 2018-12-06 11:44 | Internal Medicine Prog Note ---
Internal Medicine Subjective - Subjective Patient seen and examined:: with staff, chart reviewed Patient is:: awake, verbal, interactive, ambulating, denies any new complaints Per staff patient has:: no adverse event, poor appetite, tolerating meds Internal Medicine Objective - Results Result Diagrams: 12/04/18 12:15 12/04/18 12:15 Recent Labs: Laboratory Last Values WBC 6.5 Th/cmm (4.8-10.8) 12/04/18 12:15 RBC 4.65 Mil/cmm (3.80-5.10) 12/04/18 12:15 Hgb 13.8 gm/dL (12-16) 12/04/18 12:15 Hct 41.7 % (41.0-60) 12/04/18 12:15 MCV 89.7 fl (81-100) 12/04/18 12:15 MCH 29.6 pg (27.0-31.0) 12/04/18 12:15 MCHC Differential 33.0 pg (28.0-36.0) 12/04/18 12:15 RDW 12.6 % (11.5-20.0) 12/04/18 12:15 Plt Count 228 Th/cmm (150-400) 12/04/18 12:15 MPV 7.1 fl 12/04/18 12:15 Neutrophils % 59.9 % (40.0-80.0) 12/04/18 12:15 Lymphocytes % 32.1 % (20.0-50.0) 12/04/18 12:15 Monocytes % 6.5 % (2.0-10.0) 12/04/18 12:15 Eosinophils % 0.7 % (0.0-5.0) 12/04/18 12:15 Basophils % 0.8 % (0.0-2.0) 12/04/18 12:15 Sodium 141 mEq/L (136-145) 12/04/18 12:15 Potassium 3.7 mEq/L (3.5-5.1) 12/04/18 12:15 Chloride 105 mEq/L (98-107) 12/04/18 12:15 Carbon Dioxide 27.6 mEq/L (21.0-31.0) 12/04/18 12:15 Anion Gap 12.1 (7.0-16.0) 12/04/18 12:15 BUN 14 mg/dL (7-25) 12/04/18 12:15 Creatinine 0.8 mg/dL (0.6-1.2) 12/04/18 12:15 Est GFR ( Amer) > 60.0 ml/min (>90) 12/04/18 12:15 Est GFR (Non-Af Amer) > 60.0 ml/min 12/04/18 12:15 BUN/Creatinine Ratio 17.5 12/04/18 12:15 Glucose 107 mg/dL (70-105) H 12/04/18 12:15 Calcium 9.9 mg/dL (8.6-10.3) 12/04/18 12:15 Magnesium 2.4 mg/dL (1.9-2.7) 12/04/18 12:15 Total Bilirubin 0.3 mg/dL (0.3-1.0) 12/04/18 12:15 AST 11 U/L (13-39) L 12/04/18 12:15 ALT 14 U/L (7-52) 12/04/18 12:15 Alkaline Phosphatase 62 U/L (34-104) 12/04/18 12:15 Creatine Kinase 55 U/L (30-223) 12/04/18 12:15 Total Protein 7.0 gm/dL (6.0-8.3) 12/04/18 12:15 Albumin 4.6 gm/dL (3.7-5.3) 12/04/18 12:15 Globulin 2.4 gm/dL 12/04/18 12:15 Albumin/Globulin Ratio 1.9 (1.0-1.8) H 12/04/18 12:15 Triglycerides 129 mg/dL (<150) 12/03/18 06:50 Cholesterol 203 mg/dL (<200) H 12/03/18 06:50 LDL Cholesterol Direct 139 mg/dL (75-193) 12/03/18 06:50 HDL Cholesterol 54 mg/dL (23-92) 12/03/18 06:50 Urine Source CLEAN C 12/04/18 20:20 Urine Color YELLOW 12/04/18 20:20 Urine Clarity CLEAR (CLEAR) 12/04/18 20:20 Urine pH 5.5 (4.6 - 8.0) 12/04/18 20:20 Ur Specific [place] 1.010 (1.005-1.030) 12/04/18 20:20 Urine Protein NEGATIVE mg/dL (NEGATIVE) 12/04/18 20:20 Urine Glucose (UA) NEGATIVE mg/dL (NEGATIVE) 12/04/18 20:20 Urine Ketones NEGATIVE mg/dL (NEGATIVE) 12/04/18 20:20 Urine Blood NEGATIVE (NEGATIVE) 12/04/18 20:20 Urine Nitrate NEGATIVE (NEGATIVE) 12/04/18 20:20 Urine Bilirubin NEGATIVE (NEGATIVE) 12/04/18 20:20 Urine Urobilinogen 0.2 E.U./dL (0.2 - 1.0) 12/04/18 20:20 Ur Leukocyte Esterase MODERATE (NEGATIVE) H 12/04/18 20:20 Urine RBC 0-2 /hpf (0-5) 12/04/18 20:20 Urine WBC 2-5 /hpf (0-5) 12/04/18 20:20 Ur Epithelial Cells FEW /lpf (FEW) 12/04/18 20:20 Urine Bacteria 1+ /hpf (NONE SEEN) H 12/04/18 20:20 - Physical Exam Vitals and I&O: Vital Signs Temp 98.4 F 12/05/18 14:00 Pulse 91 12/06/18 09:24 Resp 20 12/05/18 14:00 BP 115/69 12/06/18 09:24 Pulse Ox 97 12/05/18 14:00 Intake & Output 12/05/18 12/06/18 12/06/18 18:59 06:59 18:59 Intake Total 1200 Balance 1200 Intake: Oral 1200 Other: # Bowel Movements 1 Active Medications: Current Medications Acetaminophen (Tylenol) 650 mg PO Q4HR PRN PRN Reason: Mild Pain / Temp above 100 Stop: 01/31/19 23:05 Aripiprazole (Abilify) 2.5 mg PO DAILY [facility] Stop: 02/04/19 08:59 Last Admin: 12/06/18 09:25 Dose: 2.5 mg Lisinopril (Zestril) 10 mg PO DAILY AARON Stop: 02/01/19 08:59 Last Admin: 12/06/18 09:24 Dose: 10 mg Lorazepam (Ativan) 0.5 mg PO Q4HR PRN; Protocol PRN Reason: Anxiety Stop: 01/01/19 20:29 Last Admin: 12/02/18 23:40 Dose: 0.5 mg Magnesium Hydroxide (Milk Of Magnesia) 30 ml PO HS PRN PRN Reason: Constipation Trazodone HCl (Desyrel) 50 mg PO HS AARON; Protocol Stop: 02/01/19 20:59 Last Admin: 12/06/18 00:57 Dose: 50 mg Zolpidem Tartrate (Ambien) 5 mg PO HS PRN PRN Reason: Insomnia Stop: 01/31/19 20:29 Last Admin: 12/02/18 23:40 Dose: 5 mg General: alert HEENT: NC/AT, PERRLA, EOMI, throat clear Neck: Supple, No JVD Lungs: CTAB Cardiovascular: RRR, Normal S1, Normal S2, without murmur Abdomen: soft, non-tender, thin, positive bowel sound Extremities: clear Neurological: no change Internal Medicine Assmt/Plan - Assessment Assessment: ASSESSMENT AND PLAN: Hyponatremia, hypertension, history of hyperthyroidism/Graves' disease, and tachycardia, episode of low bp - Plan Plan: PLAN: we will monitor the patient closely. Her accounting bookkeeper told her not to continue on Synthroid for now and just monitor and continue on _bp meds___. We will correct electrolytes. Continue with current care with followup consult and recommendations.
--- NOTE | 2018-12-07 01:33 | Progress Notes ---
DATE: 12/06/2018 PSYCHIATRIC PROGRESS NOTE PROGRESS ON THE UNIT: Staff was spoken to. The patient is interviewed. The patient's daughter has been spoken to. The patient's daughter has been visiting the patient at this time. The patient has been tearful, crying, and the patient is stating that she is afraid of the EBS that she had the night before and she was not able to sleep. The patient's coping skills at this time are noted to be very poor. The patient has been having difficult time to cope with the stress. Paranoia is noted, but the patient denies any command hallucinations. The patient has been placing placed on Abilify and has been able to tolerate. The patient is reporting that she has been trying to get in contact with the sister so that she can keep an eye on her when she leaves this place. ASSESSMENT: The patient is still paranoid and depressed. PLAN: To continue the patient with supportive therapy and followup. [facility]# [id number]
--- NOTE | 2018-12-07 12:14 | Internal Medicine Prog Note ---
Internal Medicine Subjective - Subjective Patient seen and examined:: with staff, chart reviewed Patient is:: awake, verbal, interactive, ambulating, denies any new complaints Per staff patient has:: no adverse event, poor appetite, tolerating meds Internal Medicine Objective - Results Result Diagrams: 12/04/18 12:15 12/04/18 12:15 Recent Labs: Laboratory Last Values WBC 6.5 Th/cmm (4.8-10.8) 12/04/18 12:15 RBC 4.65 Mil/cmm (3.80-5.10) 12/04/18 12:15 Hgb 13.8 gm/dL (12-16) 12/04/18 12:15 Hct 41.7 % (41.0-60) 12/04/18 12:15 MCV 89.7 fl (81-100) 12/04/18 12:15 MCH 29.6 pg (27.0-31.0) 12/04/18 12:15 MCHC Differential 33.0 pg (28.0-36.0) 12/04/18 12:15 RDW 12.6 % (11.5-20.0) 12/04/18 12:15 Plt Count 228 Th/cmm (150-400) 12/04/18 12:15 MPV 7.1 fl 12/04/18 12:15 Neutrophils % 59.9 % (40.0-80.0) 12/04/18 12:15 Lymphocytes % 32.1 % (20.0-50.0) 12/04/18 12:15 Monocytes % 6.5 % (2.0-10.0) 12/04/18 12:15 Eosinophils % 0.7 % (0.0-5.0) 12/04/18 12:15 Basophils % 0.8 % (0.0-2.0) 12/04/18 12:15 Sodium 141 mEq/L (136-145) 12/04/18 12:15 Potassium 3.7 mEq/L (3.5-5.1) 12/04/18 12:15 Chloride 105 mEq/L (98-107) 12/04/18 12:15 Carbon Dioxide 27.6 mEq/L (21.0-31.0) 12/04/18 12:15 Anion Gap 12.1 (7.0-16.0) 12/04/18 12:15 BUN 14 mg/dL (7-25) 12/04/18 12:15 Creatinine 0.8 mg/dL (0.6-1.2) 12/04/18 12:15 Est GFR ( Amer) > 60.0 ml/min (>90) 12/04/18 12:15 Est GFR (Non-Af Amer) > 60.0 ml/min 12/04/18 12:15 BUN/Creatinine Ratio 17.5 12/04/18 12:15 Glucose 107 mg/dL (70-105) H 12/04/18 12:15 Calcium 9.9 mg/dL (8.6-10.3) 12/04/18 12:15 Magnesium 2.4 mg/dL (1.9-2.7) 12/04/18 12:15 Total Bilirubin 0.3 mg/dL (0.3-1.0) 12/04/18 12:15 AST 11 U/L (13-39) L 12/04/18 12:15 ALT 14 U/L (7-52) 12/04/18 12:15 Alkaline Phosphatase 62 U/L (34-104) 12/04/18 12:15 Creatine Kinase 55 U/L (30-223) 12/04/18 12:15 Total Protein 7.0 gm/dL (6.0-8.3) 12/04/18 12:15 Albumin 4.6 gm/dL (3.7-5.3) 12/04/18 12:15 Globulin 2.4 gm/dL 12/04/18 12:15 Albumin/Globulin Ratio 1.9 (1.0-1.8) H 12/04/18 12:15 Triglycerides 129 mg/dL (<150) 12/03/18 06:50 Cholesterol 203 mg/dL (<200) H 12/03/18 06:50 LDL Cholesterol Direct 139 mg/dL (75-193) 12/03/18 06:50 HDL Cholesterol 54 mg/dL (23-92) 12/03/18 06:50 Urine Source CLEAN C 12/04/18 20:20 Urine Color YELLOW 12/04/18 20:20 Urine Clarity CLEAR (CLEAR) 12/04/18 20:20 Urine pH 5.5 (4.6 - 8.0) 12/04/18 20:20 Ur Specific [place] 1.010 (1.005-1.030) 12/04/18 20:20 Urine Protein NEGATIVE mg/dL (NEGATIVE) 12/04/18 20:20 Urine Glucose (UA) NEGATIVE mg/dL (NEGATIVE) 12/04/18 20:20 Urine Ketones NEGATIVE mg/dL (NEGATIVE) 12/04/18 20:20 Urine Blood NEGATIVE (NEGATIVE) 12/04/18 20:20 Urine Nitrate NEGATIVE (NEGATIVE) 12/04/18 20:20 Urine Bilirubin NEGATIVE (NEGATIVE) 12/04/18 20:20 Urine Urobilinogen 0.2 E.U./dL (0.2 - 1.0) 12/04/18 20:20 Ur Leukocyte Esterase MODERATE (NEGATIVE) H 12/04/18 20:20 Urine RBC 0-2 /hpf (0-5) 12/04/18 20:20 Urine WBC 2-5 /hpf (0-5) 12/04/18 20:20 Ur Epithelial Cells FEW /lpf (FEW) 12/04/18 20:20 Urine Bacteria 1+ /hpf (NONE SEEN) H 12/04/18 20:20 - Physical Exam Vitals and I&O: Vital Signs Temp 98.3 F 12/06/18 14:00 Pulse 81 12/07/18 08:40 Resp 20 12/06/18 14:00 BP 115/72 12/07/18 08:40 Pulse Ox 97 12/06/18 14:00 Intake & Output 12/06/18 12/07/18 12/07/18 18:59 06:59 18:59 Intake Total 900 Balance 900 Intake: Oral 900 Other: # Voids 3 # Bowel Movements 1 Active Medications: Current Medications Acetaminophen (Tylenol) 650 mg PO Q4HR PRN PRN Reason: Mild Pain / Temp above 100 Stop: 01/31/19 23:05 Alprazolam (Xanax) 0.25 mg PO BID PRN; Protocol PRN Reason: Anxiety Stop: 02/04/19 18:37 Last Admin: 12/06/18 23:02 Dose: 0.25 mg Aripiprazole (Abilify) 2.5 mg PO DAILY AARON Stop: 02/04/19 08:59 Last Admin: 12/07/18 08:41 Dose: 2.5 mg Lisinopril (Zestril) 10 mg PO DAILY AARON Stop: 02/01/19 08:59 Last Admin: 12/07/18 08:40 Dose: 10 mg Lorazepam (Ativan) 0.5 mg PO Q4HR PRN; Protocol PRN Reason: Anxiety Stop: 01/01/19 20:29 Last Admin: 12/02/18 23:40 Dose: 0.5 mg Magnesium Hydroxide (Milk Of Magnesia) 30 ml PO HS PRN PRN Reason: Constipation Trazodone HCl (Desyrel) 50 mg PO HS AARON; Protocol Stop: 02/01/19 20:59 Last Admin: 12/06/18 21:48 Dose: 50 mg Zolpidem Tartrate (Ambien) 5 mg PO HS PRN PRN Reason: Insomnia Stop: 01/31/19 20:29 Last Admin: 12/02/18 23:40 Dose: 5 mg General: alert HEENT: NC/AT, PERRLA, EOMI, throat clear Neck: Supple, No JVD Lungs: CTAB Cardiovascular: RRR, Normal S1, Normal S2, without murmur Abdomen: soft, non-tender, thin, positive bowel sound Extremities: clear Neurological: no change Internal Medicine Assmt/Plan - Assessment Assessment: ASSESSMENT AND PLAN: Hyponatremia, hypertension, history of hyperthyroidism/Graves' disease, and tachycardia, episode of low bp - Plan Plan: PLAN: we will monitor the patient closely. Her pipe smoking machine offbearer told her not to continue on Synthroid for now and just monitor and continue on _bp meds___. We will correct electrolytes. Continue with current care with followup consult and recommendations. ua done- no infection Nutritional Asmnt/Malnutr-PDOC - Dietary Evaluation Malnutrition Findings (Please click <Entered> for more info): Nutritional Asmnt/Malnutrition Start: 12/06/18 14: 37 Text: Status: Complete Freq: Protocol: Document 12/06/18 14:37 [email or web address] (Rec: 12/06/18 14:42 BRYANNA [email or web address]) Nutritional Asmnt/Malnutrition Patient General Information Nutritional Screening Moderate Risk Diagnosis psychotic Pertinent Medical Hx/Surgical Hx s/p thyroid surgery, T and A, right thyroid lobectoy Subjective Information Pt seen sitting on bed with her daughter at bedside. Pt is alert, stated food has been good. Food preference provided to RD. Per EMR, PO intake 100 %. Current Diet Order/ Nutrition Support 2 gm sodium Pertinent Medications reviewed Pertinent Labs 12/04 glucose 107 Nutritional Hx/Data Height 1.57 m Height (Calculated Centimeters) 157.5 Current Weight (lbs) 49.895 kg Weight (Calculated Kilograms) 49.9 Weight (Calculated Grams) 64514.2 Body Mass Index (BMI) 20.1 Weight Status Approriate GI Symptoms GI Symptoms None Last BM 5/8 Difficult in: None Skin Integrity/Comment: intact Current %PO Good (75-100%) Estimated Nutritional Goals BEE in Kcals: Using Current wt Calories/Kcals/Kg 25-30 Kcals Calculated 2060-4412 Protein: Using Current wt Protein g/k Protein Calculated 50 Fluid: ml 1250-1500ml (1ml/kcal) Nutritional Problem No current Nutrition Prob Problem N/A Malnutrition Alert Is there a minimum of two criteria No selected? Query Text:Check all the applicable criteria. A minimum of two criteria are recommended for diagnosis of either severe or non-severe malnutrition. Malnutrition Related to Morbid Obesity Malnutrition related to morbid obesity No Intervention/Recommendation Comments 1. Continue with 2gm sodium diet as ordered. 2. Monitor PO intake, wt, labs and skin integrity 3. F/U as low risk in 7 days Expected Outcomes/Goals Expected Outcomes/Goals 1. PO intake to meet at least 75% of nutritional needs. 2. Wt stability, skin to remain intact, labs to approach WNL.
--- NOTE | 2018-12-08 05:05 | Progress Notes ---
DATE: 12/07/2018 PSYCHIATRIC PROGRESS NOTE SUBJECTIVE: Staff was spoken to. The patient is interviewed. Mood is noted to be anxious. The patient is still paranoid, but denies any command hallucinations. Insight and judgment at this time are noted to be improving. Impulse control is noted to be fair. 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 The patient has been having difficult time to accept that she has some emotional problems. ASSESSMENT: The patient is still ____ paranoid. PLAN: To continue the patient with the supportive therapy and followup. JOB# [id number]
--- NOTE | 2018-12-08 10:26 | Progress Notes ---
DATE: 12/07/2018 PSYCHOLOGY PROGRESS NOTE SUBJECTIVE: The patient is seen and is interviewed. Case is discussed with staff. The patient is in her room. The patient is alert and responsive. The patient states that her daughter has been visiting and she feels this is helpful. Staff reports the patient has episodes of crying and difficulty sleeping. The patient states that she feels better about being on the Abilify and not on the Seroquel. The patient denied any auditory hallucinations or any delusions, i.e., the devil is having an effect on her decisions and her life. OBJECTIVE: Mood is euphoric. Affect is mood congruent. Thought process shows to be linear. The patient denies any auditory or visual hallucinations. The patient denies delusions. The patient's behavior indicates some tearful episodes. The patient is taking her p.o. medications. ASSESSMENT AND PLAN: The patient's paranoid ideation persists with some lingering anxiety and depression. The patient states that she feels better on the Abilify. The patient was requesting for this contract writer to contact her sister with regard to discharging. This is deferred to case management and director social service. The patient is aware of this. We provided reality testing and reality integration. We provided coping strategies for chronic severe mental illness. We reviewed boundary construction, boundary definitions, and boundary awareness regarding inappropriate behavior, i.e., disrobing and becoming naked and wandering in and out of her home. The patient was able to respond to these interventions. We will continue the present treatment and follow up in 2 days if the patient remains admitted on the unit. JOB# [id number] FELICITY
--- NOTE | 2018-12-08 18:08 | Discharge Summary ---
DATE OF DISCHARGE: 12/08/2018 IDENTIFYING DATA: The patient is a 63-year-old woman living with her son. JUSTIFICATION OF HOSPITALIZATION: The patient is admitted on 5150 as a danger to self. CHIEF COMPLAINT: "I don't know what happened to me and I was scared, I was running naked." DIAGNOSES AT THE TIME OF ADMISSION: AXIS I: Psychotic disorder, not otherwise specified. AXIS IB: Major depressive disorder, recurrent with psychotic symptoms. AXIS IC: Posttraumatic stress disorder. AXIS II: None. AXIS III: Hypertension. HISTORY OF PRESENT ILLNESS: Please refer the 12/03/2018 dictation done by me. Physical examination at the time of admission was done by Dr. Duron and is noted to be significant for hypertension. HOSPITAL COURSE AND RESPONSE TO TREATMENT: The patient has been observed on inpatient unit. Blood work has been reviewed and the patient has been closely monitored. The patient has been given the Zyprexa and she felt very sedated with it and also developed redness on both the upper extremities and hence it was discontinued. The patient has been placed on Abilify, which was started 2 mg and the patient has been closely monitored and the patient has been provided individual as well as group counseling. The patient has been given the Xanax at 2.5 mg b.i.d. p.r.n. and the patient has been given 10 mg of lisinopril and has been given 50 mg of the trazodone at nighttime. With these medications, the patient has been observed and was noted to be doing fairly well and the patient was finally discharged to the care of her sister for followup on outpatient basis. MENTAL STATUS EXAMINATION: At the time of discharge, the patient's mood is to be anxious. Affect is appropriate. Not suicidal or homicidal. Insight and judgment at this time are noted to be improving. Impulse control is noted to be fair. No bizarre behavior is noted. The patient has been able to verbalize the concerns rather than to act out. No side effects to the medications are noted. The patient is willing to comply with the treatment. The patient's daughter also has been stating that she is going to be taking some time off and will be trying to spend time with the mother later and the patient has been doing fairly well and hence I have decided to discharge the patient today on 12/08/2018 with recommendation that she is going to be seeking treatment on an outpatient basis. DIAGNOSES AT THE TIME OF DISCHARGE: AXIS I: Psychotic disorder, not otherwise specified. AXIS IB: Posttraumatic stress disorder. AXIS IC: Major depressive disorder, recurrent with psychotic symptoms. AXIS II: None. AXIS III: Hypertension. AFTERCARE PLAN: The patient is discharged to [facility] to be followed up on an outpatient basis. PROGNOSIS AT THE TIME OF DISCHARGE: Noted to be fair with the treatment. [facility]# [id number]
--- NOTE | 2018-12-08 22:58 | Progress Notes ---
DATE: 12/08/2018 PSYCHIATRIC PROGRESS NOTE SUBJECTIVE: Staff was spoken to. The patient is interviewed. Mood is noted to be anxious. Affect is appropriate. The patient is not suicidal or homicidal. The patient denies active hallucinations or delusions are noted. The patient is stating that her sister is going to keep an eye on her and she wants to stay with her sister in [place]. The patient's daughter and the patient's correctional case manager has been spoken, the correctional case manager has confirmed that the sister is going to be taking some time out to keep an eye on the patient. The patient's daughter is also mentioning that she is going to be there with her mother in a day or two to take care of her assessment. The patient is stabilizing, not suicidal or homicidal. PLAN: To discharge the patient today for followup on outpatient basis. JOB# [id number]
== END 2018-12-08 10:30 | DRG 885 ==
LOC: GERO 20:20
PROVIDERS: ADMIT Psychiatry & Neurology Psychiatry; ATTEND Psychiatry & Neurology Psychiatry
DX: F33.3 Major depressive disorder, recurrent, severe with psychotic symptoms (principal); E87.1 Hypo-osmolality and hyponatremia; E03.9 Hypothyroidism, unspecified; I10 Essential (primary) hypertension; E05.00 Thyrotoxicosis with diffuse goiter without thyrotoxic crisis or storm; R00.0 Tachycardia, unspecified; F29 Unspecified psychosis not due to a substance or known physiological condition; F43.10 Post-traumatic stress disorder, unspecified
CPT/HCPCS: 36415-UA; 80053-TC; 80061-TC; 81001-TC; 82550-TC; 83036-90; 83735-TC; 85025-TC; J0515; J7051; Z7610